=== PATIENT | male | born 1985 | race Caucasian/White ===

== ENCOUNTER 2024-06-11 17:04 | Emergency (ER) | payer OTHER, SELFPAY ==
[2024-06-11 17:14] VITALS: BP 150/103; PULSE 90; RESP 16; TEMP 37.2; O2SAT 97; BMI 30.7
--- NOTE | 2024-06-11 17:14 | DI.US.S_ITS ---
PROCEDURE: US SCROTUM INDICATIONS: pain s/p vasectomy TECHNIQUE: Real-time scanning was performed of the scrotum and testicles, with image documentation. Color and pulse Doppler interrogation was performed of both testicles. COMPARISON: None. FINDINGS: Right: Testicle is normal in size at 4.5 x 2.7 x 2.9 cm, and homogenous in echotexture. Epididymis is normal in overall size and morphology. No hydrocele or varicoceles. Overlying scrotal skin is mildly thickened. Left: Testicle is normal in size at 5.0 x 2.6 x 2.6 cm, and homogeneous in echotexture. Epididymis is normal in overall size and morphology. No hydrocele or varicoceles. Overlying scrotal skin is mildly thickened. Doppler: Color and pulse Doppler demonstrate normal and symmetric arterial flow in both testicles. Area of pain was superior to the scrotum and demonstrates increased echogenic fat that extends into the right distal inguinal canal. IMPRESSION: Echogenic fat within the area of concern superior to the scrotum extending to the inguinal canal. Findings may represent inflammation versus infection. Strangulated right inguinal hernia is in the differential. Dictated by: Tramaine Pennington M.D. on 06/11/2024 at 18:58 Approved by: Tramaine Pennington M.D. on 06/11/2024 at 19:00
--- NOTE | 2024-06-11 17:48 | ED_ITS ---
HPI - Male Genitourinary <Leilani Haile PA-C - Last Filed: 06/11/24 19:30> General Chief complaint: Urogenital-Male Stated complaint: issues with recent vasectomy Time Seen by Provider: 06/11/24 17:14 Source: patient Mode of arrival: Ambulatory History of Present Illness HPI Narrative: 39-year-old male presents to the ED with right sided scrotal pain for 4 days. Patient is status post a vasectomy that was performed on 05/31. Patient states that he seemed to be recovering well until 4 days ago when he started having pain on the upper aspect of the right scrotum. Patient states that he is able to palpate a somewhat thickened skin in that area. No fever, chills, discharge, erythema. Related Data Previous Rx's Medication Instructions Recorded doxycycline hyclate 100 mg capsule 100 mg PO BID 10 days #20 caps 06/11/24 Allergies Allergy/AdvReac Type Severity Reaction Status Date / Time No Known Drug Allergies Allergy Verified 06/11/24 17:14 Review of Systems <Leilani Haile PA-C - Last Filed: 06/11/24 19:30> Constitutional Constitutional: Denies chills, Denies fatigue, Denies fever(s), Denies frequent falls, Denies lethargy and Denies weakness Eyes Eyes: Denies change in vision, Denies eye discharge, Denies irritation and Denies loss of vision ENT Ears, Nose, Mouth, and Throat: Denies change in voice, Denies dizziness, Denies neck pain, Denies sore throat and Denies throat swelling Cardiovascular Cardiovascular: Denies chest pain, Denies irregular heart rhythm, Denies lightheadedness, Denies palpitations, Denies dyspnea, Denies dyspnea on exertion and Denies orthopnea Respiratory Respiratory: Denies cough, Denies dyspnea, Denies dyspnea on exertion and Denies wheezing Gastrointestinal Gastrointestinal: Denies abdominal pain, Denies change in bowel habits, Denies diarrhea, Denies nausea and Denies vomiting Genitourinary Comments: R sided scrotal pain Musculoskeletal Musculoskeletal: Denies neck pain and Denies numbness Integumentary/Breasts Skin/Breast: Denies pruritus, Denies erythema, Denies rash and Denies wounds Neurologic Neurologic: Denies behavioral changes, Denies confusion, Denies dizziness, Denies frequent falls, Denies loss of vision, Denies numbness and Denies weakness Psychiatric Psychiatric: Denies anxiety, Denies behavioral changes, Denies confusion, Denies depression, Denies homicidal ideation and Denies suicidal ideation Endocrine Endocrine: Denies fatigue, Denies flushing and Denies palpitations Hematologic/Lymphatic Hematologic/Lymphatic: Denies easy bruising Allergic/Immunologic Allergic/Immunologic: Denies urticaria, Denies throat swelling and Denies wheezing Patient History <Leilani Haile PA-C - Last Filed: 06/11/24 19:30> Social History Smoking Status: Current some day smoker Smoking Status: Current some day smoker tobacco type: cigars Alcohol type: hard liquor Exam <Leilani Haile PA-C - Last Filed: 06/11/24 19:30> Narrative Exam Narrative: Const General:?cooperative, healthy appearing and comfortable HENGA Head:?normal to inspection Ears:?hearing grossly normal bilaterally Nose:?external nose normal Face and sinus:?normal facial exam and sinuses nontender Mouth:?oral mucosae normal Throat:?posterior oropharynx normal Eyes General:?appearance normal, both eyes and all related structures Neck Neck:?normal visual inspection and no lymphadenopathy noted Resp Effort & Inspection:?normal respiratory effort Auscultation:?clear to auscultation bilaterally Cardio Rate:?regular rate Rhythm:?regular rhythm There is mild swelling, palpable thickness to the upper aspect of the right scrotum. No discharge. The incision has healed well. Neuro General:?patient alert, patient awake and patient oriented x3 Initial Vital Signs Initial Vital Signs: Vital Signs Temperature 98.9 F 06/11/24 17:14 Pulse Rate 90 06/11/24 17:14 Respiratory Rate 16 06/11/24 17:14 Blood Pressure 150/103 H 06/11/24 17:14 Pulse Oximetry 97 06/11/24 17:14 Oxygen Delivery Method Room Air 06/11/24 17:14 <Amy Long DO - Last Filed: 06/12/24 02:09> Initial Vital Signs Initial Vital Signs: Vital Signs Temperature 98.9 F 06/11/24 17:14 Pulse Rate 90 06/11/24 17:14 Respiratory Rate 16 06/11/24 17:14 Blood Pressure 150/103 H 06/11/24 17:14 Pulse Oximetry 97 06/11/24 17:14 Oxygen Delivery Method Room Air 06/11/24 17:14 Course <Leilani Haile PA-C - Last Filed: 06/11/24 19:30> Orders Ordered: ED Orders 06/11/24 17:14 US scrotum Stat Discontinued Medications Ceftriaxone Sodium (Ceftriaxone 1,000 Mg Vial) 500 mg IM NOW ONE Stop: 06/11/24 19:19 Last Admin: 06/11/24 19:31 Dose: 500 mg Documented By: RL Ibuprofen (Ibuprofen 400 Mg Tablet) 800 mg PO NOW ONE Stop: 06/11/24 18:17 Last Admin: 06/11/24 18:22 Dose: 800 mg Documented By: RL Lidocaine HCl (Lidocaine 1% (Pf) 5 Ml) 2.1 ml INJ NOW ONE Stop: 06/11/24 19:19 Last Admin: 06/11/24 19:31 Dose: 2.1 ml Documented By: RL Vital Signs Vital signs: Vital Signs - 8 hr 06/11/24 19:02 Pulse Rate 77 Respiratory Rate 16 Blood Pressure 129/91 H Pulse Oximetry 96 Oxygen Delivery Method Room Air <Amy Long DO - Last Filed: 06/12/24 02:09> Orders Ordered: ED Orders 06/11/24 17:14 US scrotum Stat Discontinued Medications Ceftriaxone Sodium (Ceftriaxone 1,000 Mg Vial) 500 mg IM NOW ONE Stop: 06/11/24 19:19 Last Admin: 06/11/24 19:31 Dose: 500 mg Documented By: RL Ibuprofen (Ibuprofen 400 Mg Tablet) 800 mg PO NOW ONE Stop: 06/11/24 18:17 Last Admin: 06/11/24 18:22 Dose: 800 mg Documented By: RL Lidocaine HCl (Lidocaine 1% (Pf) 5 Ml) 2.1 ml INJ NOW ONE Stop: 06/11/24 19:19 Last Admin: 06/11/24 19:31 Dose: 2.1 ml Documented By: RL Vital Signs Vital signs: Vital Signs - 8 hr 06/11/24 19:02 Pulse Rate 77 Respiratory Rate 16 Blood Pressure 129/91 H Pulse Oximetry 96 Oxygen Delivery Method Room Air MDM - Male Genitourinary <Leilani Haile PA-C - Last Filed: 06/11/24 19:30> Lab Data Labs: Urine Dip Bedside Urine Glucose Negative Bedside Urine Bilirubin - Negative Bedside Urine Ketone - Negative Urine Specific [place] 1.015 Bedside Urine Occult Blood - Negative Bedside Urine pH 6.0 Bedside Urine Protein - Negative Bedside Urine Urobilinogen - Negative Bedside Urine Nitrite - Negative Bedside Urine Leukocytes - Negative Esterase MDM Narrative Medical decision making narrative: 39-year-old male presents to the ED with right sided scrotal pain for 4 days. Concern for complications including infection versus hematoma versus granuloma versus epididymitis versus post vasectomy pain syndrome versus other. Will obtain ultrasound scrotum. Will give ibuprofen for pain. Will reassess. Urine without UTI. Ultrasound shows echogenic fat within the area of concern superior to the scrotum extending into the inguinal canal. Findings may represent inflammation versus infection. Strangulated right inguinal hernia is in the differential. Patient's symptoms clinically correspond more to the infectious versus inflammatory process. Antibiotics prescribed. Patient to follow-up with urology as soon as possible. Patient agrees to monitor symptoms and return to the ED if his symptoms worsen in the meanwhile. ED return precautions discussed with patient. Patient verbalized understanding. Medical records reviewed: Yes <Amy Long DO - Last Filed: 06/12/24 02:09> Lab Data Labs: Urine Dip Bedside Urine Glucose Negative Bedside Urine Bilirubin - Negative Bedside Urine Ketone - Negative Urine Specific [place] 1.015 Bedside Urine Occult Blood - Negative Bedside Urine pH 6.0 Bedside Urine Protein - Negative Bedside Urine Urobilinogen - Negative Bedside Urine Nitrite - Negative Bedside Urine Leukocytes - Negative Esterase Discharge Plan Departure Patient Disposition: Home Clinical Impression: Scrotum pain Instructions: Vasectomy Activity Restrictions/Additional Instructions: You were evaluated in the ED today for scrotal pain following a vasectomy. Your ultrasound indicated a possible infectious versus inflammatory cause. You are being prescribed antibiotics. Please take them as prescribed. Please follow-up with urologist Dr. Tadeo by calling [phone] for further evaluation. In the meanwhile, if you have worsening symptoms, please return to the ED. Prescriptions: New doxycycline hyclate 100 mg capsule 100 mg PO BID 10 Days Qty: 20 0RF Referrals: Vicente,DoctorMD [Primary Care Provider] - Stand Alone Forms: Patient Portal/API/Survey ED Sign-out <Amy Long DO - Last Filed: 06/12/24 02:09> Cosign ED Attending Cospachecoature Attestation: I was immediately available in the department for consultation.
[2024-06-11] MEDS: IBUPROFEN 400 MG TABLET 800 MG PO (18:22)
[2024-06-11 19:02] VITALS: BP 129/91; PULSE 77; RESP 16; O2SAT 96
[2024-06-11] MEDS: cefTRIAXone 1,000 MG VIAL 500 MG IM (19:31)
[2024-06-11] MEDS: LIDOCAINE 1% (PF) 5 ML 2.1 ML INJ (19:31)
== END 2024-06-11 19:51 | disposition home or self-care (01) ==
PROVIDERS: Emergency Provider Student in an Organized Health Care Education/Training Program
DX: N50.82 Scrotal pain (principal); Z98.52 Vasectomy status
CPT/HCPCS: 76870; 81003; 93975; 96372; 99283; 99284; J0696